=== PATIENT | female | born 1990 | race African-American/Black ===

== ENCOUNTER 2017-07-24 16:46 | Emergency (ER) | payer OTHER ==
[~2017-07-24] VITALS: Ht 165.1 cm; Wt 164.1 kg
[2017-07-24] MEDS ORDERED: PREDNISONE20 MG PO (19:20)
[2017-07-24] MEDS ORDERED: VENTOLIN HFA18 GM IH (19:23)
[2017-07-24 19:26] VITALS: BP 171/88
== END 2017-07-24 19:29 | disposition home or self-care (01) ==
LOC: EME 16:46
DX: J06.9 Acute upper respiratory infection, unspecified (principal); I10 Essential (primary) hypertension
CPT/HCPCS: 87651 90; 93005; 94640; 99281; 99284; J7512

== ENCOUNTER 2017-09-09 23:09 | Emergency (ER) | payer OTHER ==
[~2017-09-09] VITALS: Ht 167.6 cm; Wt 161.8 kg
[~2017-09-09 23:09] MED LIST: PREDNISONE20 MG PO; VENTOLIN HFA18 GM IH
[2017-09-10] MEDS ORDERED: ULTRACET1 TABLET PO (02:37)
[2017-09-10 02:49] VITALS: BP 179/84
== END 2017-09-10 02:50 | disposition home or self-care (01) ==
LOC: EME 23:09
DX: S61.111A Laceration without foreign body of right thumb with damage to nail, initial encounter (principal); W31.82XA Contact with other commercial machinery, initial encounter; Y93.G1 Activity, food preparation and clean up; Y92.512 Supermarket, store or market as the place of occurrence of the external cause; Y99.0 Civilian activity done for income or pay; Z23 Encounter for immunization
CPT/HCPCS: 99281; 99284